=== PATIENT | male | born 1970 | race Caucasian/White ===

== ENCOUNTER 2022-06-16 03:53 | Emergency (ER) | payer OTHER, SELFPAY ==
--- NOTE | ~2022-06-16 | XR_ITS ---
XR shoulder RT min 2V DATE: 06/16/2022 04:50 INDICATION: Right shoulder pain TECHNIQUE: 3 views COMPARISON: None FINDINGS: There is degenerative change and spurring at the right acromion clavicular joint. Normal al ignment at the zaheer clavicular and glenohumeral joints. No fracture or dislocation, periosteal reac tion or bone destruction or abnormal soft tissue calcification. IMPRESSION: Degenerative change/spurring at right acromioclavicular joint Reviewed, dictated and finalized at location A.
[2022-06-16 03:54] VITALS: BP 153/92; PULSE 87; RESP 16; TEMP 36.4; O2SAT 99
--- NOTE | 2022-06-16 04:17 | ED.GENADULT ---
HPI - General Adult General Chief complaint: Extremity Injury, Upper Stated complaint: dislocated rt shoulder Time Seen by Provider: 06/16/22 04:07 History of Present Illness HPI narrative: Patient 52-year-old gentleman who presents the emergency department with chief complaint of right shoulder pain. 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 Patient reports no new blunt trauma to the upper extremity the patient states the pain is worse with movement and improved with rest. Patient reports no prior injury to that right shoulder. Related Data Home Medications Medication Instructions Recorded Confirmed lisinopril 2.5 mg tablet 2.5 mg PO DAILY 06/16/22 Allergies Allergy/AdvReac Type Severity Reaction Status Date / Time No Known Allergies Allergy Verified 06/16/22 04:16 Review of Systems Review of Systems: A 10 system review of systems was completed on the patient and is negative except for what is stated in the HPI. Nursing and ancillary documentation was reviewed. Exam Narrative: GENERAL: Well-appearing, well-nourished, and in no acute distress. HEAD: Normocephalic, atraumatic. EYES: PERRLA and EOMI. ENT: Nares clear, no rhinorrhea or epistaxis. Mucous membranes moist. NECK: Supple. CHEST: Clear to auscultation. No respiratory distress. HEART: Regular rate and rhythm. No murmur heard. Normal peripheral pulses. ABDOMEN: Soft, nontender, nondistended, normal active bowel sounds. EXTREMITIES: Normal range of motion. No edema. Tenderness to palpation of the right shoulder but able to be passively moved SKIN: Warm, dry, no rash. NEURO: No focal deficits. Alert and oriented x3. PSYCH: Normal mood and affect. Course Vital Signs Vital signs: Vital Signs Temperature 36.4 C 06/16/22 03:54 Pulse Rate 87 06/16/22 03:54 Respiratory Rate 06/16/22 03:54 Blood Pressure 153/92 H 06/16/22 03:54 Pulse Oximetry 99 06/16/22 03:54 Oxygen Delivery Room Air 06/16/22 03:54 Temperature 36.4 C 06/16/22 03:54 Pulse Rate 87 06/16/22 03:54 Respiratory Rate 16 06/16/22 03:54 Blood Pressure 153/92 H 06/16/22 03:54 Pulse Oximetry 99 06/16/22 03:54 Oxygen Delivery Room Air 06/16/22 03:54 Medical Decision Making Vital Signs Vital Signs: Vital Signs Temperature 36.4 C 06/16/22 03:54 Pulse Rate 87 06/16/22 03:54 Respiratory Rate 16 06/16/22 03:54 Blood Pressure 153/92 H 06/16/22 03:54 Pulse Oximetry 99 06/16/22 03:54 Oxygen Delivery Room Air 06/16/22 03:54 Temperature 36.4 C 06/16/22 03:54 Pulse Rate 87 06/16/22 03:54 Respiratory Rate 16 06/16/22 03:54 Blood Pressure 153/92 H 06/16/22 03:54 Pulse Oximetry 99 06/16/22 03:54 Oxygen Delivery Room Air 06/16/22 03:54 Discharge Plan Discharge Prescriptions: No Action lisinopril 2.5 mg Tablet 2.5 mg PO DAILY Follow-up/Referrals: [place],Ezekiel Peña MD [Primary Care Provider] -
[2022-06-16] MEDS: HYDROcodone/acetaminophen (*CRX) 5-325 MG TABLET 1 TAB PO (05:28)
[2022-06-16 05:41] VITALS: BP 154/101; PULSE 75; RESP 16; O2SAT 98
== END 2022-06-16 05:39 | disposition home or self-care (01) ==
PROVIDERS: Emergency Provider Emergency Medicine; PCP Internal Medicine Pulmonary Disease
DX: S46.911A Strain of unspecified muscle, fascia and tendon at shoulder and upper arm level, right arm, initial encounter (principal); X50.3XXA Overexertion from repetitive movements, initial encounter
CPT/HCPCS: 73030; 99283; A4565; A9270

== ENCOUNTER 2025-06-10 06:13 | Emergency (ER) | payer OTHER, SELFPAY ==
--- NOTE | ~2025-06-10 | XR_ITS ---
Left Shoulder Technique: AP and scapular Y views were obtained. Clinical History: Pain Findings: No fracture or dislocation is seen. Osseous alignment is anatomic. The glenohumeral joint e ffusion is minimal degenerative change. AC joint intact. Soft tissues are unremarkable. Impression: Minimal glenohumeral joint degenerative change. Reviewed, dictated and finalized at location . Impression: Minimal glenohumeral joint degenerative change.
--- OUTSIDE RECORDS SUMMARY | 2025-06-10 06:15 | XMS_ITS | Continuity of Care Document ---
Author Organization [facility] Address [address] [place] [address] Phone Care Team Providers Care Lube Man Name Role Phone Yannick Turcios PT Unavailable Unavailable Procedures Procedure Date Neuromuscular Re-Ed Therapeutic Exercise Manual Therapy Neuromuscular Re-Ed Therapeutic Exercise Manual Therapy Neuromuscular Re-Ed Therapeutic Exercise Manual Therapy Neuromuscular Re-Ed Therapeutic Exercise Manual Therapy PT Evaluation Moderate Complexity Therapeutic Exercise Advance Directives Directive Yes / No Effective Date File Name No Information Encounters Encounter Description Practice Location Reason(s) For Visit Diagnoses Date Provider Providers Copied on Encounter [facility], [address], [id number], tel:[phone] [place] No Information Karolina Lanier. [address] [place], [address], [place]. tel:[phone] Referring Provider: [address], [place], [address]. tel:[phone] [facility], [address], [place], [place], [id number], tel:[phone] [place] No Information Karolina Lanier. [address] [place], [address], . tel:[phone] Referring Provider: [address], [place], [address]. tel:[phone] [facility], [address], [id number], tel:[phone] [place] No Information Karolina Lanier. [facility] [place], [place], [facility], . tel:[phone] Referring Provider: [address], [place], [address]. tel:[phone] [facility], [address], [id number], tel:[phone] [place] No Information Rudi Weber . Referring Provider: [address], [place], [address]. tel:[phone] [facility], [address], [id number], tel:[phone] [place] No Information Karolina Lanier. [address] [place] [address], [address] [place] [address]. tel:[phone] Referring Provider: [address], [place], [address]. tel:[phone] Family History Family Member Type Diagnosis Age At Onset No Information Payers Payer name Insurance type Covered constitution party ID Authoriza tipelon(s) [employer] [employer] [id number] Social History Type Description Quantity Date Captured Comments Sex Male Smoking Status No Information Chief Complaint And Reason For Visit No Information Reason For Referral Reason For Referral No Information Plan Of Treatment Date Type Action Status Referral Ordered: PCP timeframe: 1 week. (related to Overweight) ordered Referral Ordered: Weight management: Referral to physician timeframe: 1 Month. (related to Overweight) ordered History Of Present Illness Encounter Date Complaint History Of Prese nt Illness No Information Functional Status Date Functional Assessmen t No Information Instructions Date Instruction Additional Infor mation No Information Assessments Type Assessment Date No Information Patient Care Teams Name Effective Dates (start - stop) Status Members No Information
--- OUTSIDE RECORDS SUMMARY | 2025-06-10 06:15 | XMS_ITS | Encounter Summary ---
Author Organization [facility] Address [facility] [place] [address] Care Team Providers Care Admitting Office Escort Name Role Phone Kiran Stockton MD Primary Care Provider [phone] Yohan Flores MD Primary Care Provider [phone] Encounter Details Date Type Department Care Team (Late st Contact Info) Description 05/09/2019 Abstract [facility] CONVERSION [address] [place] [address] , Generic Conversion, Social History Tobacco Use Types Packs/Day Years Used Date Smoking Tobacco: Never Assessed Sex and Gender Information Value Date Recorded Sex Assigned at Male 03/16/2025 4:54 PM CDT Legal Sex Male 9:09 PM CDT Gender Identity Not on file Sexual Orientation Not on file documented as of this encounter Plan of Treatment Not on file documented as of this encounter Visit Diagnoses Not on filedocumented in this encounter Care Teams Admitting Office Escort Relationship Specialty Start Date End Date Kiran Stockton MD [address] [place] [address] PCP - General FAMILY PRACTICE 10/11/19 05/17/24 Yohan Florse MD [address] [place] [address] PCP - General FAMILY PRACTICE 05/18/24 documented as of this encounter
--- OUTSIDE RECORDS SUMMARY | 2025-06-10 06:15 | XMS_ITS | Continuity of Care Document ---
Author Name Casey Amador Address [address] [place] [address] Organization Unknown Address [address] [place] [address] Medications No known medications Problems No known problems
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
--- OUTSIDE RECORDS SUMMARY | 2025-06-10 06:15 | XMS_ITS | Clinical Summary ---
Author Organization [facility] Address [address] [place] [address] Phone Care Team Providers Care [employer] Name Role Phone Yohan Flores MD Primary Care Provider [phone] Allergies Active Allergy Reactions Criticality Noted Date Comments Penicillins Anaphylaxis 02/19/2025 Medications furosemide (LASIX) 40 MG Tablet Take 1 Tablet by mouth daily as needed for Other (Swelling). 30 Tablet 02/19/2025 Active potassium chloride (MICRO-K) 10 MEQ Capsule CR Take 1 Capsule by mouth daily. 30 Capsule 02/19/2025 Active Social History Tobacco Use Types Packs/Day Years Used Date Smoking Tobacco: Every Day Cigarettes Smokeless Tobacco: Never Tobacco Cessation:Ready to Q uit: Not Asked; Counseling Given: Not Answered Alcohol Use Standard Drinks/Week Comments Not Currently 0 (1 standard drink = 0.6 oz pur e alcohol) Sex and Gender Information Value Date Recorded Sex Assigned at Male 02/19/2025 3:59 AM CDT Legal Sex Male 3:45 AM CDT Gender Identity Male 02/19/2025 3:59 AM CDT Sexual Orientation Not on file Last Filed Vital Signs Vital Sign Reading Time Taken Comments Blood Pressure 164/84 02/19/2025 5:30 AM CDT Pulse 65 02/19/2025 5:30 AM CDT Temperature 35.8 C (96.5 F) 02/19/2025 3:56 AM CDT Respiratory Rate 18 02/19/2025 5:30 AM CDT Oxygen Saturation 98% 02/19/2025 5:30 AM CDT Inhaled Oxygen Concentration - - Weight 123 kg (271 lb 2.7 oz) 02/19/2025 3:56 AM CDT Height 190.5 cm (6' 3) 02/19/2025 3:56 AM CDT Body Mass Index 33.89 02/19/2025 3:56 AM CDT Plan of Treatment Health Maintenance Due Date Last Done Comments Hepatitis C Virus (HCV) Screening 1970 TdaP Immunization 1970 Hepatitis B Immunization (1 of 3 - 19+ 3-dose series) 1989 Pneumococcal Immunization (5 0+ years) (1 of 2 - PCV) 1989 Colonoscopy 2015 Colorectal Cancer Screening 2015 Cologuard 2020 Immunochemical Fecal Occult Blood 2020 Zoster Immunization (1 of 2) 2020 SARS-COV-2 Immunization ( - season) 2024 PSA Discussion 2025 Influenza Immunization (Seas on Ended) 2025 Respiratory Syncytial Virus (RSV) Immunization (Adult) (1 - 1-dose 75+ series) 2045 Human Papillomavirus (HPV) Immunization Aged Out No longer eligible b ased on patient's age to complete this topic Meningococcal Immunization (ACWY) Aged Out No longer eligible based on patient's age to complete this topic Rotavirus Immunization Aged Out No lo nger eligible based on patient's age to complete this topic Insurance [place]ICAID [place] Care Teams [employer] Relationship Specialty Start Date End Date Yohan Flores MD [address] [place] [address] PCP - General Family Medicine 02/19/25
--- OUTSIDE RECORDS SUMMARY | 2025-06-10 06:15 | XMS_ITS | Clinical Summary ---
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 Active potassium chloride CR (MICRO-K) 10 MEQ CR capsule Take 1 capsule (10 mEq total) by mouth daily. Active Active Problems No known active problems Encounters Date Type Department Care Team Description 05/06/2025 8:07 AM CDT - 05/06/2025 11:59 PM CDT Hospital Encounter [facility] Interventional Radiology [address] [place] [address] Rosendo Graff MD Discharge Disposition: Home or Self Care (Routine Discharge) 05/06/2025 Travel 03/17/2025 10:30 AM CDT - 03/17/2025 11:59 PM CDT Hospital Encounter [facility] [address] [place] [address] Mamadou Greenwood MD Discharge Disposition: Home or Self Care (Routine Discharge) 03/16/2025 4:36 PM CDT - 03/16/2025 7:15 PM CDT Emergency [facility] [address] [place] [address] Shady Hickey DO Edema Discharge Disposition: Home or Self Care (Routine Discharge) 03/16/2025 Travel from Last 3 Months Social History Tobacco Use Types Packs/Day Years Used Date Smoking Tobacco: Every Day Smokeless Tobacco: Never Alcohol Use Standard Drinks/Week Comments No 0 (1 standard drink = 0.6 oz pur e alcohol) AUDIT-C Answer Date Recorded Frequency of Alcohol Consumption Never 10/11/2019 Average Number of Drinks Not on file 019 Frequency of Binge Drinking Not on file 10/02 Sex and Gender Information Value Date Recorded Sex Assigned at Male 03/16/2025 4:54 PM CDT Legal Sex Male 9:09 PM CDT Gender Identity Not on file Sexual Orientation Not on file Last Filed Vital Signs Vital Sign Reading Time Taken Comments Blood Pressure 139/100 05/06/2025 9:17 AM CDT Pulse 72 05/06/2025 9:17 AM CDT Temperature 36.1 C (97 F) 03/16/2025 4:41 PM CDT Respiratory Rate 16 05/06/2025 9:17 AM CDT Oxygen Saturation 100% 05/06/2025 9:17 AM CDT Inhaled Oxygen Concentration - - Weight 120.2 kg (265 lb) 05/06/2025 8:21 AM CDT Height 190.5 cm (6' 3) 05/06/2025 8:21 AM CDT Body Mass Index 33.12 05/06/2025 8:21 AM CDT Plan of Treatment Health Maintenance Due Date Last Done Comments Colorectal Cancer Screening Colonoscopy (10 Years) 1970 Annual Physical 1973 Hepatitis C 1988 DTaP, Tdap and Td Vaccines ( 1 - Tdap) 1989 Hepatitis B Vaccines (1 of 3 - 19+ 3-dose series) 1989 Pneumococcal Vaccine: 50+ Ye ars (1 of 2 - PCV) 1989 Zoster Vaccines (1 of 2) 2020 COVID-19 Vaccine (2023-2 5 season) 2024 Meningococcal B Vaccine Aged Out No l onger eligible based on patient's age to complete this topic Meningococcal Vaccine Aged Out No velvet donald eligible based on patient's age to complete this topic RSV Immunizations Under 20 Months Aged Out No longer eligible based on patient's age to complete this topic Procedures Procedure Name Priority Date/Time Associated Diagnosis Comments IR LUMBAR EPIDURAL INJECTION Routine 05/06/2025 9:08 AM CDT Lumbar radiculopathy USV JIMBO DUPLEX LOW EXT LT STAT 03/17/2025 11:32 AM CDT Swelling of limb CTA CHEST STAT 03/16/2025 6:24 PM CDT HC URINALYSIS AUTO W/MICRO STAT 03/16/2025 6:12 PM CDT ECG 12-LEAD Routine 03/16/2025 5:24 PM CDT XR CHEST PORTABLE STAT 03/16/2025 5:1 8 PM CDT PRO-BRAIN NATRIURETIC PEPTIDE STAT 03/16/2025 5:10 PM CDT TROPONIN, QUANT STAT 03/16/2025 5:10 PM CDT COMPREHENSIVE METABOLIC PANEL STAT 03/16/2025 5:10 PM CDT D-DIMER, QUANTITATIVE STAT 03/16/2025 5:10 PM CDT PARTIAL THROMBOPLASTIN TIME,PTT STAT 03/16/2025 5:10 PM CDT PROTHROMBIN TIME, VENOUS STAT 03/16/2025 5:10 PM CDT CBC W/DIFF AUTOMATED STAT 03/16/2025 5:10 PM CDT from Last 3 Months Results * IR LUMBAR EPIDURAL INJECTION (05/06/2025 9:08 AM CDT) Narrative Radiology, Technologist - 05/06/2025 9:08 AM CDT This report does not contain a radiologist's interpretation. Please review associated procedure and/or operative report. us Koteswara R Narla MD INTERVENTIONAL RADIOLOGY Fi nal Result * USV JIMBO DUPLEX LOW EXT LT (03/17/2025 11:32 AM CDT) Anatomical Region Laterality Modality Ultrasound 03/17/2025 11:4 2 AM CDT Impressions 03/17/2025 11:43 AM CDT IMPRESSION: No evidence of deep venous thrombosis. Ordered By: MAMADOU GREENWOOD Interpreted By: Alfonso Glynn MD, 03/17/2025 11:42 AM Narrative 03/17/2025 11:43 AM CDT [address] [place] [address] Examination: Left lower extremity venous color Doppler ultrasound. Exam time: 1118 hours. Clinical history: Leg pain and swelling. Comparison: 06/11/2015. Technique: Grayscale and color Doppler images including spectral analysis. Findings: Color Doppler evaluation of the deep veins of the left lower extremity demonstrates normal appearing color flow, spectra and compressibility throughout. No intraluminal filling defects are identified. Procedure Note Alfonso Glynn MD - 03/17/[address] [place] [address] Examination: Left lower extremity venous color Doppler ultrasound. Exam time: 1118 hours. Clinical history: Leg pain and swelling. Comparison: 06/11/2015. Technique: Grayscale and color Doppler images including spectralanalysis. Findings: Color Doppler evaluation of the deep veins of the left lowerextremity demonstrates normal appearing color flow, spectra andcompressibility throughout. No intraluminal filling defects areidentified. IMPRESSION: No evidence of deep venous thrombosis. Ordered By: MAMADOU GREENWOOD Interpreted By: Alfonso Glynn MD, 03/17/2025 11:42 AM Mamadou Greenwood MD VASC Final Res ult * CTA CHEST (03/16/2025 6:24 PM CDT) Anatomical Region Laterality Modality Chest Computed Tomogra phy 03/16/2025 6:30 PM CDT Impressions 03/16/2025 6:51 PM CDT Impression: 1. No acute pulmonary embolism. 2. No focal lung consolidation. 3. Cholelithiasis. Dictated By: Jose R Cuellar MD on 03/16/2025 6:30 PM The attending radiologist has reviewed the image(s) and agrees with the content of this report. Ordered By: SHADY HICKEY Interpreted By: Jose R Cuellar MD, 03/16/2025 6:30 PM Narrative 03/16/2025 6:51 PM CDT [address] [place] [address] Examination: CTA chest. Clinical Information: Lower extremity edema. Elevated d-dimer. Comparison:CT lung screening 05/13/2024 Technique: IV contrast: 94mL Isovue 370.Was injected into the left antecubital fossa without acute event. Oral contrast: None. Technical comments: CTA of the chest was performed according to the pulmonary embolism protocol. Coronal MIP images were submitted for evaluation. Dose reduction: This CT exam was performed using one or more of the following dose reduction techniques: Automated exposure control, adjustment of the mA and/or kV according to patient size, and/or use of iterative reconstruction technique. Findings: PULMONARY VASCULATURE The pulmonary arteries are well-opacified and no intraluminal filling defect is identified. There is mixing artifact in the left lower lobe pulmonary vasculature, simulating thrombus. MEDIASTINUM Heart: Normal in size. No pericardial effusion. Lymph nodes: No thoracic lymphadenopathy. LUNGS AND PLEURA Lungs: There is no focal lung consolidation. Linear atelectasis in the lingular segment left upper lobe. Dependent atelectasis in the lung bases. Subsegmental atelectasis in the left lung base. No concerning pulmonary nodules. Pleura: No pleural effusion. UPPER ABDOMEN Cholelithiasis. BONES/SOFT TISSUES No acute fractures or aggressive osseous lesions. Degenerative changes of the visualized spine. Procedure Note Bhargav Abraham MD - 04/15/2025 [facility] [address] [place] [address] Examination: CTA chest. Clinical Information: Lower extremity edema. Elevated d-dimer. Comparison:CT lung screening 05/13/2024 Technique: IV contrast: 94mL Isovue 370.Was injected into the left antecubital fossawithout acute event. Oral contrast: None. Technical comments: CTA of the chest was performed according to thepulmonary embolism protocol. Coronal MIP images were submitted forevaluation. Dose reduction: This CT exam was performed using one or more of thefollowing dose reduction techniques: Automated exposure control,adjustment of the mA and/or kV according to patient size, and/or use ofiterative reconstruction technique. Findings: PULMONARY VASCULATURE The pulmonary arteries are well-opacified and no intraluminal fillingdefect is identified. There is mixing artifact in the left lower lobepulmonary vasculature, simulating thrombus. MEDIASTINUM Heart: Normal in size. No pericardial effusion. Lymph nodes: No thoracic lymphadenopathy. LUNGS AND PLEURA Lungs: There is no focal lung consolidation. Linear atelectasis in thelingular segment left upper lobe. Dependent atelectasis in the lung bases.Subsegmental atelectasis in the left lung base. No concerning pulmonarynodules. Pleura: No pleural effusion. UPPER ABDOMEN Cholelithiasis. BONES/SOFT TISSUES No acute fractures or aggressive osseous lesions. Degenerative changes ofthe visualized spine. Impression: 1. No acute pulmonary embolism. 2. No focal lung consolidation. 3. Cholelithiasis. Dictated By: Jose R Cuellar MD on 03/16/2025 6:30 PM The attending radiologist has reviewed the image(s) and agrees with thecontent of this report. Ordered By: SHADY HICKEY Interpreted By: Jose R Cuellar MD, 03/16/2025 6:30 PM us Shady Hickey DO CT Final Result * (ABNORMAL) URINALYSIS (03/16/2025 6:12 PM CDT) COLOR (U) YELLOW 03/16/2025 6:29 PM CDT [facility] TRANSPARENCY CLEAR 03/16/2025 6:29 PM CDT [facility] SPECIFIC GRAVITY (U) 1.025 1.000 - 1.025 03/16/2025 6:29 PM CDT [facility] U PH 6.5 5.0 - 8.0 03/16/2025 6:29 PM CDT [facility] LEUKOCYTES (U) NEGATIVE NEGATIVE 03/16/2025 6:29 PM CDT [facility] NITRITES NEGATIVE NEGATIVE 03/16/2025 6:29 PM CDT [facility] PROTEIN RANDOM (U) NEGATIVE NEGATIVE 03/16/2025 6:29 PM CDT [facility] GLUCOSE (U) NEGATIVE NEGATIVE 03/16/2025 6:29 PM CDT [facility] KETONES MG/DL (U) NEGATIVE NEGATIVE 03/16/2025 6:29 PM CDT [facility] UROBILINOGEN 0.2 <1.0 EU/DL 03/16/2025 6:29 PM CDT [facility] BILIRUBIN (U) NEGATIVE NEGATIVE 03/16/2025 6:29 PM CDT [facility] BLOOD (U) NEGATIVE NEGATIVE 03/16/2025 6:29 PM CDT [facility] WBC/HPF NONE SEEN(A) 0 - 5 /HPF 03/16/2025 6:29 PM CDT [facility] RBC/HPF NONE SEEN(A) 0 - 5 /HPF 03/16/2025 6:29 PM CDT [facility] EPI/LPF NONE SEEN /LPF 03/16/2025 6:29 PM CDT [facility] BACTERIA (U) RARE /HPF 03/16/2025 6:29 PM CDT [facility] URINE SPECIMEN OBTAINED BY CLEAN CATCH PROCEDURE / Unknown 03/16/2025 6:12 PM CDT us Shady Hickey DO URINE ORDERABLES Final Resul t [facility] [address] [place] [address], * ECG 12 lead (03/16/2025 5:24 PM CDT) 03/16/2025 5:24 PM CDT [facility]ative [facility] [place] [facility] - 03/16/2025 10:35 PM [address]T [address] [place] [address] Test Date: 2025-03-16 Pat Name: TEA PERICO Department: 3 Room: EXAM 606 Gender: Male Hearing Care Professional: : 1970 Requested By: SHADY HICKEY Order Number: [id number] Reading MD: Anthony Baker Measurements Intervals [place] Rate: 74 P: -16 SD: 212 QRS: -28 QRSD: 125 T: 96 QT: 332 QTc: 369 Interpretive Statements SINUS RHYTHM WITH FIRST DEGREE AV BLOCK BORDERLINE LEFT AXIS DEVIATION POSSIBLE RIGHT VENTRICULAR CONDUCTION DELAY LEFT VENTRICULAR HYPERTROPHY AND ST-T CHANGE Procedure Note Anthnoy Baker MD - 03/16/[address] [place] [address] Test Date: 2025-03-16 Pat Name: TEA GUTIERREZ Department: 3 Room: EXAM 606 Gender: Male Hearing Care Professional: : 1970 Requested By: SHADY HICKEY Order Number: [id number] Reading MD: Anthony Baker Measurements Intervals [place] Rate: 74 P: -16 SD: 212 QRS: -28 QRSD: 125 T: 96 QT: 332 QTc: 369 Interpretive Statements SINUS RHYTHM WITH FIRST DEGREE AV BLOCK BORDERLINE LEFT AXIS DEVIATION POSSIBLE RIGHT VENTRICULAR CONDUCTION DELAY LEFT VENTRICULAR HYPERTROPHY AND ST-T CHANGE us Shady Hickey DO ECG ORDERABLES Final Result [facility] * XR CHEST PORTABLE (03/16/2025 5:18 PM CDT) Anatomical Region Laterality Modality Chest Radiographic Mignon ging 03/16/2025 5:31 PM CDT Impressions 03/16/2025 5:34 PM CDT Impression: No acute findings. Referred By: Interpreted By: Arnold Stovall MD, 03/16/2025 5:31 PM Narrative 03/16/2025 5:34 PM [address]T [address] [place] [address] Examination: Chest 1 view portable History: Shortness of breath DATE/TIME: 03/16/2025 5:18 PM Comparison: 03/27/2019 Technique: AP portable view of the chest was obtained. Findings: Heart size, mediastinal contours and pulmonary vasculature are within normal limits. No pulmonary consolidation, pleural effusion or pneumothorax. No acute osseous abnormality. Procedure Note Arnold Stovall MD - 03/16/[address] [place] [address] Examination: Chest 1 view portable History: Shortness of breath DATE/TIME: 03/16/2025 5:18 PM Comparison: 03/27/2019 Technique: AP portable view of the chest was obtained. Findings: Heart size, mediastinal contours and pulmonary vasculature arewithin normal limits. No pulmonary consolidation, pleural effusion orpneumothorax. No acute osseous abnormality. Impression: No acute findings. Referred By: Interpreted By: Arnold Stovall MD, 03/16/2025 5:31 PM Shady Hickey DO GENERAL IMAGING Final Result * (ABNORMAL) PRO-BRAIN NATRIURETIC PEPTIDE (03/16/2025 5:10 PM CDT) PRO-B TYPE NATRIURETIC PEPTIDE 235(H) <125 PG/ML 03/16/2025 6:03 PM CDT [facility] Comment: CUT POINTS ESTABLISHED BY INTERNATIONAL COLL[employer]AT[employer] ON NT PROBNP (ICON) STUDY (2006). AGE INDEPENDENT: <300 PG/ML HAS A 99% NEGATIVE PREDICTIVE VALUE FOR EXCLUDING ACUTE CHF <50 YEARS: >450 PG/ML IS CONSISTENT WITH ACUTE CHF 50-75 YEARS: >900 PG/ML IS CONSISTENT WITH ACUTE CHF >75 YEARS: >1800 PG/ML IS CONSISTENT WITH ACUTE CHF IN PATIENTS WITH RENAL INSUFFICIENCY (GFR <60), >1200 PG/ML YIELDS A DIAGNOSTIC SENSITIVITY AND SPECIFICITY OF 89% AND 72% FOR ACUTE CHF. 03/16/2025 5:10 PM CDT us Shady Hickey DO LABORATORY Final Result Performing Organization Address [facility] Co de Phone Number [facility] [address] [place] [address], [place] [phone] * PARTIAL THROMBOPLASTIN TIME,PTT (03/16/2025 5:10 PM CDT) PTT 25.2 25.1 - 36.5 SEC 03/16/2025 5:39 PM CDT [facility] 03/16/2025 5:10 PM CDT us Shady Hickey DO LABORATORY Final Result Performing Organization Address [facility] de Phone Number [facility] [address] [place] [address], [place] [phone] * PROTIME/INR, VENOUS (03/16/2025 5:10 PM CDT) PROTIME 12.0 9.4 - 12.5 SEC 03/16/2025 5:39 PM CDT [facility] INR 1.0 0.8 - 1.0 03/16/2025 5:39 PM CDT [facility] 03/16/2025 5:10 PM CDT us Shady Hickey DO LABORATORY Final Result Performing Organization Address [facility] Co de Phone Number [facility] [address] [place] [address], * (ABNORMAL) COMPREHENSIVE METABOLIC PANEL (03/16/2025 5:10 PM CDT) SODIUM S/P/B 141 136 - 145 MMOL/L 03/16/2025 6:03 PM CDT [facility] POTASSIUM S/P/B 2.8(LL) 3.5 - 5.1 MMOL/L 03/16/2025 6:03 PM CDT [facility] Comment: Critical Result(s) Called to and read back by:Tomy Coleman at: 18:00:54 03/16/2025 by KAYLAN. CHLORIDE S/P/B 101 98 - 107 MMOL/L 03/16/2025 6:03 PM CDT [facility] CO2 33.9(H) 21.0 - 32.0 MMOL/L 03/16/2025 6:03 PM CDT [facility] GLUCOSE 171(H) 70 - 99 MG/DL 03/16/2025 6:03 PM CDT [facility] Comment: FASTING GLUCOSE 100 TO 125 MG/DL IS CONSISTENT WITH IMPAIRED FASTING GLUCOSE. FASTING GLUCOSE >125 MG/DL IS CONSISTENT WITH DIABETES. RANDOM GLUCOSE >200 MG/DL WITH HYPERGLYCEMIC SYMPTOMS IS CONSISTENT WITH DIABETES. PER ADA GUIDELINES BUN 22 6 - 24 MG/DL 03/16/2025 6:03 PM CDT [facility] CREATININE S/P/B 1.23 0.70 - 1.30 MG/DL 03/16/2025 6:03 PM CDT [facility] CALCIUM S/P/B 8.8 8.4 - 10.5 MG/DL 03/16/2025 6:03 PM CDT [facility] BILIRUBIN TOTAL S/P/B 0.3 0.2 - 1.0 MG/DL 03/16/2025 6:03 PM CDT [facility] Comment: THIS ASSAY IS NOT RECOMMENDED FOR PATIENTS UNDERGOING TREATMENT WITH ELTROMBOPAG DUE TO THE POTENTIAL FOR FALSELY ELEVATED RESULTS. ALKALINE PHOSPHATASE S/P/B 82 45 - 115 U/L 03/16/2025 6:03 PM CDT [facility] AST 21 15 - 37 U/L 03/16/2025 6:03 PM CDT [facility] ALT 26 16 - 63 U/L 03/16/2025 6:03 PM CDT [facility] TOTAL PROTEIN S/P/B 7.1 6.4 - 8.2 G/DL 03/16/2025 6:03 PM T [facility] ALBUMIN S/P/B 3.3(L) 3.4 - 5.0 G/DL 03/16/2025 6:03 PM CDT [facility] ANION GAP 6.1 5.0 - 15.0 MMOL/L 03/16/2025 6:03 PM T [facility] OSMOLALITY (CALC) 299 MOSM/KG 025 6:03 PM T [facility] Comment:REFERENCE RANGE NOT ESTABLISHED GFR ESTIMATE 69(L) >89 ML/MIN/1. 73 M2 03/16/2025 6:03 PM CDT [facility] GFR NOTES GFR REFERENCE S: 03/16/2025 6:03 PM T [facility] Comment: THE ESTIMATED GFR IS CALCULATED USING THE 2020 CKD-EPI EQUATION. THE FOLLOWING CATEGORIES FOR GRADING RENAL FUNCTION ARE RECOMMENDED BY THE INTERNATIONAL SOCIETY OF NEPHROLOGY (KDIGO 2012 CLINICAL PRACTICE GUIDELINE). G1,NORMAL OR HIGH: >89 ml/min/1.73 m2 G2,MILDLY DECREASED: 60-89 ml/min/1.73 m2 G3A,MILDLY TO MODERATELY DECREASED: 45-59 ml/min/1.73 m2 G3B,MODERATELY TO SEVERELY DECREASED: 30-44 ml/min/1.73 m2 G4,SEVERELY DECREASED: 15-29 ml/min/1.73 m2 G5,KIDNEY FAILURE: <15 ml/min/1.73 m2 03/16/2025 5:10 PM CDT us Shady Hickey DO LABORATORY Final Result [facility] [address] [place] [address], [place] [phone] * (ABNORMAL) D-DIMER, QUANTITATIVE (03/16/2025 5:10 PM CDT) [facility] D-DIMER 1,094(H) 0 - 500 ng{FEU}/mL 03/16/2025 5:39 PM CDT [facility] Comment: D-Dimer values less than or equal to 500 ng/mL FEU have a negative predictive value of >95% for exclusion of deep vein thrombosis and pulmonary embolism. In patients over 50 (who tend to have higher normal baseline D-Dimer values), recent studies suggest age-adjusted D-Dimer cutoff values (calculated as: age [years] x 10 ng/mL) result in equivalent outcomes and no additional false negative findings. 03/16/2025 5:10 PM CDT Shady Hickey DO LABORATORY Final Result [facility] [address] [place] [address], * (ABNORMAL) CBC W/DIFF AUTOMATED (03/16/2025 5:10 PM CDT) [facility] WBC 8.94 4.00 - 10.80 x10'3/uL 03/16/2025 5:19 PM CDT [facility] RBC 4.08(L) 4.50 - 6.10 x10'6/uL 03/16/2025 5:19 PM CDT [facility] HGB 12.1(L) 13.0 - 18.0 G/DL 03/16/2025 5:19 PM CDT [facility] HCT 35.6(L) 37.0 - 52.0 % 03/16/2025 5:19 PM CDT [facility] MCV 87.3 78.0 - 100.0 FL 03/16/2025 5:19 PM CDT [facility] MCH 29.7 27.0 - 31.0 PG 03/16/2025 5:19 PM CDT [facility] MCHC 34.0 33.0 - 36.0 G/DL 03/16/2025 5:19 PM CDT [facility] RDW 12.8 11.5 - 14.5 % 03/16/2025 5:19 PM CDT [facility] PLT 232 150 - 350 x10'3/uL 03/16/2025 5:19 PM CDT [facility] MPV 10.3 7.4 - 10.4 FL 03/16/2025 5:19 PM CDT [facility] CBC COMMENT NORMAL REFERENCE RANGE NOT ESTABLISHED FOR THE PROPORTIONAL LEUKOCYTE DIFFERENTIAL. 03/16/2025 5:19 PM CDT [facility] NEUTROPHILS % 59.9 % 03/16/2025 5:19 PM CDT [facility] LYMPHOCYTES % 24.8 % 03/16/2025 5:19 PM CDT [facility] MONOCYTES % 10.6 % 03/16/2025 5:19 PM CDT [facility] EOSINOPHILS % 3.5 % 03/16/2025 5:19 PM CDT [facility] BASOPHILS % 0.9 % 03/16/2025 5:19 PM CDT [facility] IMMATURE GRANS % 0.3 % 03/16/20 5:19 PM CDT [facility] NRBC % 0.0 % 03/16/2025 5:19 PM CDT [facility] ABS. NEUTROPHILS 5.35 1.60 - 8.30 x10'3/uL 03/16/2025 5:19 PM CDT [facility] ABS. LYMPHOCYTES 2.22 0.80 - 4.70 x10'3/uL 03/16/2025 5:19 PM CDT [facility] ABS. MONOCYTES 0.95 0.00 - 1.50 x10'3/uL 03/16/2025 5:19 PM CDT [facility] ABS. EOSINOPHILS 0.31 0.00 - 0.40 x10'3/uL 03/16/2025 5:19 PM CDT [facility] ABS. BASOPHILS 0.08 0.00 - 0.20 x10'3/uL 03/16/2025 5:19 PM CDT [facility] ABS. IMMATURE GRANULOCYTES 0.03 0.00 - 0.03 x10'3/uL 03/16/2025 5:19 PM CDT [facility] ABS. NUCLEATED RBC'S 0.00 0.00 - 0.01 x10'3/uL 03/16/2025 5:19 PM CDT [facility] 03/16/2025 5:10 PM CDT us Shady Hickey DO LABORATORY Final Result [facility] [address] [place] [address], [place] [phone] * TROPONIN, QUANT (03/16/2025 5:10 PM CDT) TROPONIN I HIGH SENSITIVITY 15 0 - 76 ng/L 03/16/2025 6:03 PM CDT [facility] 03/16/2025 5:10 PM CDT us Shady Hickey DO LABORATORY Final Result [facility] [address] [place] [address], [place] [phone] from Last 3 Months Insurance [facility] Care Teams Metal Temperer Relationship Specialty Start Date End Date Yohan Flores MD [address] [place] [address] PCP - General FAMILY PRACTICE 05/18/24
[2025-06-10 06:19] VITALS: BP 165/101; PULSE 80; RESP 18; TEMP 36.4; O2SAT 100
--- OUTSIDE RECORDS SUMMARY | 2025-06-10 06:30 | XMS_ITS | Continuity of Care Document ---
Author Organization [facility] Address [address] [place] [address] Phone Care Team Providers Care Family [employer] Teacher Name Role Phone Yannick Turcios PT Unavailable [...] Diagnoses Date Provider Providers Copied on Encounter [facility], [address], [id number], tel:[phone] [place] No Information Karolina Lanier. [address] [place], [address], [place]. tel:[phone] Referring Provider: [address], [place], [address]. tel:[phone] [facility], [address], [place], [place], [id number], tel:[phone] [place]ick No Information Karolina Lanier. [address] [place], [address], . tel:[phone] Referring Provider: [address], [place], [address]. tel:[phone] [facility], [address], [id number], tel:[phone] [place] No Information Karolina Lanier. [facility] [place], [place], [facility], . tel:[phone] Referring Provider: [address], [place], [address]. tel:[phone] [facility], [address], [id number], tel:[phone] [place] No Information Rudi Weber . Referring Provider: [address], [place], [address]. tel:[phone] [facility], [address], [id number], tel:[phone] [place] No Information Karolina Lanier. [address] [place] [address], [address] [place] [address]. tel:[phone] Referring Provider: [address], [place], [address]. tel:[phone] Family History Family Member Type Diagnosis Age At Onset No Information Payers Payer name Insurance type Covered green party ID Authoriza tipelon(s) [facility] CI [id number] Social History Type Description Quantity Date Captured [...]
--- NOTE | 2025-06-10 06:33 | ED_ITS ---
HPI - Extremity Problem General Chief complaint: Extremity Problem,Nontraumatic Stated complaint: upper extremity injury Time Seen by Provider: 06/10/25 06:17 Source: patient Mode of arrival: ambulatory Limitations: no limitations History of Present Illness HPI Narrative: 55 years old white male came to the ED with pain at the left shoulder. Patient reports lifting heavy stuff at his house last night, no specific trauma. History of rotator cuff surgery years ago Related Data Home Medications ?Medication ?Instructions ?Recorded ?Confirmed ?Last Taken ?Type lisinopril 2.5 mg tablet 2.5 mg PO DAILY 06/16/22 Unknown History Allergies Allergy/AdvReac Type Severity Reaction Status Date / Time lisinopril Allergy Severe Swelling Verified 06/10/25 06:27 of Lip/Tongue/Throat Review of Systems Review of Systems: All systems reviewed & are unremarkable except as noted in HPI and below Exam Narrative: General appearance: Well-developed, well-nourished Skin: Normal color Head: Normocephalic, nontraumatic Eyes: Clear conjunctiva ENT: Oropharynx normal, ears normal, nose normal Neck: Supple, nontender Chest and respiratory: Airway patent, no respiratory distress, no accessory muscle use Heart: Regular rate/rhythm Abdomen: Soft, nontender, no organomegaly, quiet bowel sounds Vascular: Normal peripheral pulses, normal capillary refill. 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 is normal as tested, no gross motor deficit Course Vital Signs Vital signs: Vital Signs Temperature 36.4 C L 06/10/25 06:19 Pulse Rate 80 06/10/25 06:19 Respiratory Rate 18 06/10/25 06:19 Blood Pressure 165/101 H 06/10/25 06:19 Pulse Oximetry 100 06/10/25 06:19 Oxygen Delivery Room Air 06/10/25 06:19 Temperature 36.4 C L 06/10/25 07:19 Pulse Rate 75 06/10/25 07:19 Respiratory Rate 17 06/10/25 07:19 Blood Pressure 141/101 H 06/10/25 07:19 Pulse Oximetry 98 06/10/25 07:19 Oxygen Delivery Room Air 06/10/25 07:19 MDM - Extremity (Nontraumatic) Imaging Data My impression: x-ray left shoulder showed no acute abnormalities Critical Care Time Critical Care Time Critical Care Time: No Discharge Plan Discharge Clinical Impression: Rotator cuff disorder Patient Disposition: Home Condition: Stable Instructions: Rotator Cuff Tendinitis (ED), Rotator Cuff Injury Exercises (DC) Additional Instructions: Return if symptoms are worsening , call your family physician for appointment, take Tylenol as as needed for aches and pain, continue home medications. Patient Language: Peruvian Prescriptions: New diclofenac sodium 75 mg tablet,delayed release (DR/EC) 75 mg PO BID PRN (Reason: pain) Qty: 14 0RF No Action lisinopril 2.5 mg Tablet 2.5 mg PO DAILY diclofenac potassium 50 mg tablet 50 mg PO TID PRN (Reason: pain) 10 Days Qty: 30 0RF Follow-up/Referrals: UNKNOWN,DOCTOR [Primary Care Provider] - Stand Alone Forms: Work/School Release IP Time of Disposition: 07:13
[2025-06-10] MEDS: IBUPROFEN 600 MG TABLET PO (06:52)
[2025-06-10] MEDS: HYDROcodone/acetaminophen (*CRX) 5-325 MG TABLET 1 TAB PO (06:53)
[2025-06-10 07:19] VITALS: BP 141/101; PULSE 75; RESP 17; TEMP 36.4; O2SAT 98
== END 2025-06-10 07:19 | disposition home or self-care (01) ==
PROVIDERS: Emergency Provider Emergency Medicine
DX: M67.812 Other specified disorders of synovium, left shoulder (principal); X50.0XXA Overexertion from strenuous movement or load, initial encounter
CPT/HCPCS: 73030; 99283; A9270